=== PATIENT | male | born 1935 | race Caucasian/White ===

== ENCOUNTER 2017-04-08 15:38 | Emergency (ER) | payer MEDICARE ==
[~2017-04-08] VITALS: Ht 172.7 cm; Wt 68.0 kg
[2017-04-08 15:40] VITALS: BP 224/86; PULSE 78; RESP 20; O2SAT 96
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
[2017-04-08] MEDS ORDERED: DIGO0.12 PO (18:46)
[2017-04-08] MEDS ORDERED: ASPI81CH37 CHEW (18:46)
[2017-04-08] MEDS ORDERED: ARIC23TA PO (18:46)
[2017-04-08] MEDS ORDERED: SERO25TA PO (18:46)
[2017-04-08] MEDS ORDERED: OXYB5TAB10 PO (18:46)
[2017-04-08 18:49] VITALS: BP 171/77; PULSE 82; RESP 20; O2SAT 100
[2017-04-08 19:21] LABS: AUTOMATED NEUTROPHIL # 3.9 TH/MM3 (1.8-7.7); BASOPHIL % 0.7 % (0.0-2.0); EOSINOPHIL # 0.3 TH/MM3 (0-0.4); EOSINOPHIL % 4.2 % (0.0-4.0); HEMATOCRIT 40.4 % (39.0-51.0); HEMO FLAGS DIFF FINAL; LYMPH % 24.7 % (9.0-44.0); LYMPHOCYTE # 1.5 TH/MM3 (1.0-4.8); MEAN CELL VOLUME 92.4 FL (80.0-100.0); MEAN CORPUSCULAR HEMOGLOBIN 31.2 PG (27.0-34.0); MEAN CORPUSCULAR HGB CONC 33.8 % (32.0-36.0); MONO % 7.6 % (0.0-8.0); NEUT % 62.8 % (16.0-70.0); PLATELET COUNT 270 TH/MM3 (150-450); RED BLOOD COUNT 4.37 MIL/MM3 (4.50-5.90); RED CELL DISTRIBUTION WIDTH 13.7 % (11.6-17.2); WHITE BLOOD COUNT 6.2 TH/MM3 (4.0-11.0)
[2017-04-08 19:57] LABS: ANION GAP 5 MEQ/L (5-15); BICARBONATE 31.1 MEQ/L (21.0-32.0); BLOOD UREA NITROGEN 27 MG/DL (7-18); CHLORIDE 106 MEQ/L (98-107); GLOMERULAR FILTRATION RATE 63 ML/MIN (>89); POTASSIUM 3.7 MEQ/L (3.5-5.1); SODIUM (NA) 142 MEQ/L (136-145)
[2017-04-08 21:22] LABS: BLOOD, URINE SMALL (NEG); COMMENT (UR) CULT NOT INDICATED; CULTURE IF INDICATED CULT NOT INDICATED; GLUCOSE,URINE NEG (NEG); KETONE, URINE NEG (NEG); MUCUS URINE FEW /lpf (OCC); NITRITE,URINE NEG (NEG); PH, URINE 5.5 (5.0-8.5); URINE COLOR YELLOW (YELLW/STRAW)
[2017-04-08 21:25] LABS: AMPHETAMINE, URINE NEG (NEG); BARBITURATES, URINE NEG (NEG); COCAINE, URINE NEG (NEG)
[2017-04-08] MEDS ORDERED: QUEtiapine FUMARATE 25 MG TAB PO ONE (21:30)
[2017-04-08] MEDS ORDERED: diphenhydrAMINE HCL 25 MG CAP PO ONE (22:15)
[2017-04-09] MEDS ORDERED: QUEtiapine FUMARATE 25 MG TAB PO ONE (08:15)
--- NOTE | 2017-04-09 16:49 | EKG ---
Date Performed: 04/08/2017 Time Performed: 18:45:30 PTAGE: 82 years EKG: ATRIAL FIBRILLATION ANTEROSEPTAL MYOCARDIAL INFARCTION ABNORMAL ECG NO PREVIOUS TRACING DOCTOR: Jose D Perry Interpretating Date/Time 04/09/2017 16:47:46
== END 2017-04-09 09:09 | disposition home or self-care (01) ==
LOC: NEPC 15:38
DX: F03.90 Unspecified dementia, unspecified severity, without behavioral disturbance, psychotic disturbance, mood disturbance, and anxiety (principal); I48.91 Unspecified atrial fibrillation; Z79.899 Other long term (current) drug therapy
CPT/HCPCS: 80048; 80162; 80307; 81001; 84443; 85025; 93005; 99284

== ENCOUNTER 2017-10-29 08:35 | Emergency (ER) | payer MEDICARE ==
[~2017-10-29] VITALS: Ht 170.2 cm; Wt 70.0 kg
[~2017-10-29 08:35] MED LIST: ARIC23TA PO; ASPI81CH6 CHEW; DIGO0.12 PO; OXYB5TAB8 PO; SERO25TA PO
[2017-10-29] MEDS ORDERED: TETANUS/DIPHTHERIA TOXOID ADULT 0.5 ML VIAL IM ONE (09:00)
[2017-10-29] MEDS ORDERED: PHENAZOPYRIDINE HCL 200 MG TAB PO ONE (09:00)
[2017-10-29 09:05] VITALS: BP 205/96; PULSE 81; RESP 16; TEMP 98.2; O2SAT 96
[2017-10-29] MEDS ORDERED: TRAZ50TA12 PO (09:07)
[2017-10-29] MEDS ORDERED: LIDOCAINE HCL 1% PF 30 ML VIAL SQ ONE (09:15)
[2017-10-29] MEDS ORDERED: MIDAZOLAM HCL 2 MG/2 ML VIAL IV PUSH ONE ×2 (09:15→10:15)
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
[2017-10-29 11:24] VITALS: BP 219/93; PULSE 71; RESP 15; O2SAT 98
[2017-10-29] MEDS ORDERED: GELATIN 12 MM/7 MM FOAM TOPICAL ONE (11:45)
--- NOTE | 2017-11-02 09:30 | PD ---
Physical Exam Narrative I was asked by my attending physician Dr. MARINELLI to perform laceration repair of patient's left forearm laceration Data Data Last Documented VS Vital Signs Date Time Temp Pulse Resp B/P (MAP) Pulse Ox O2 Delivery O2 Flow Rate FiO2 10/29/17 14:12 10/29/17 11:24 71 15 98 Room Air 10/29/17 09:05 98.2 Orders Orders ^ Insert Iv (10/29/17 08:57) Tetanus/Diphtheria Tox Adult (Tetanus/Di (10/29/17 09:00) Phenazopyridine (Pyridium) (10/29/17 09:00) Midazolam Inj (Versed Inj) (10/29/17 09:15) Lidocaine Pf 1% Inj (Xylocaine-Mpf 1% In (10/29/17 09:15) Midazolam Inj (Versed Inj) (10/29/17 10:15) Ed Discharge Order (10/29/17 11:28) Gelatin 12 Mm/7 Mm Top (Gelfoam 12 Mm/7 (10/29/17 11:45) MDM Supervised Visit with CAITLIN: Yes Procedures Procedure Narrative LACERATION LOCATION: Left forearm LENGTH: 25 cm total. U-shaped laceration NUMBER OF STITCHES/THAO: 41 No vascular or tendon injury visualized. Patient as able to flex extend the wrist in all digits. REPAIR: The area of the laceration was prepped with Betadine and sterilely draped. The laceration was infiltrated with 1% lidocaine. The wound was copiously irrigated and explored without evidence of foreign body, tendon injury or neurovascular injury. The wound was closed using 4-0 Ethilon. This was a single layer repair. A sterile dressing was applied. The patient was advised to keep the dressing clean and dry. Patient tolerated the procedure well. Diagnosis Primary Impression: Forearm laceration Qualified Codes: S51.812A - Laceration without foreign body of left forearm, initial encounter Referrals: Ena Madden MD Patient Instructions: General Instructions Departure Forms: Tests/Procedures Additional Instruction: Keep the wound dry for 24 hours. Then wash the wound with warm soap and water twice daily. Do not apply peroxide. Apply antibiotic ointment twice daily. Follow up in 14 days to have sutures removed. Follow up with plastic surgery if concerns about wound healing. Disposition: 01 DISCHARGE HOME Condition: Stable Leedy,Iona N CHIPPER MACHINE OPERATOR Nov 02, 2017 09:30
== END 2017-10-29 14:34 | disposition home or self-care (01) ==
LOC: NEPC 08:35
DX: S51.812A Laceration without foreign body of left forearm, initial encounter (principal); F03.90 Unspecified dementia, unspecified severity, without behavioral disturbance, psychotic disturbance, mood disturbance, and anxiety; Y09 Assault by unspecified means; Y92.128 Other place in nursing home as the place of occurrence of the external cause; Z23 Encounter for immunization
CPT/HCPCS: 12006; 90471; 90714; 96374; 99284; J2250